=== PATIENT | male | born 1965 | race Caucasian/White ===

== ENCOUNTER 2017-07-22 16:40 | Emergency (ER) | payer SELFPAY ==
[2017-07-22 16:52] VITALS: BP 128/90; PULSE 53; TEMP 97.7; BMI 29.0
[2017-07-22] MEDS ORDERED: KETOROLAC TROMETHAMINE 60 MG/2 ML VIAL IM ONE (19:42)
[2017-07-22] MEDS ORDERED: KETOROLAC TROMETHAMINE 60 MG/2 ML VIAL ONE (19:47)
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
== END 2017-07-22 21:11 | disposition home or self-care (01) ==
LOC: JER 16:40
PROC: 3E0233Z Introduction of Anti-inflammatory into Muscle, Percutaneous Approach (ICD-10-PCS; principal; 2017-07-22)
DX: S49.81XA Other specified injuries of right shoulder and upper arm, initial encounter (principal); V04.00XA Pedestrian on foot injured in collision with heavy transport vehicle or bus in nontraffic accident, initial encounter; Y92.410 Unspecified street and highway as the place of occurrence of the external cause; Y93.89 Activity, other specified; Y99.0 Civilian activity done for income or pay
CPT/HCPCS: 71046-TC-FY; 99282-25